=== PATIENT | female | born 1995 | race African-American/Black ===

== ENCOUNTER 2019-05-16 17:19 | Emergency (ER) | payer SELFPAY | END 2019-05-16 18:03 | disposition home or self-care (01) | LOC: ERS 17:19 | DX: J02.9 Acute pharyngitis, unspecified (principal); E11.9 Type 2 diabetes mellitus without complications; Z79.4 Long term (current) use of insulin | CPT/HCPCS: 99282 ==

== ENCOUNTER 2019-06-22 12:29 | Emergency (ER) | payer SELFPAY | END 2019-06-22 15:21 | disposition home or self-care (01) | LOC: ERS 12:29 | DX: J02.9 Acute pharyngitis, unspecified (principal); E11.9 Type 2 diabetes mellitus without complications; Z79.4 Long term (current) use of insulin | CPT/HCPCS: 99281 ==

== ENCOUNTER 2019-08-04 18:38 | Emergency (ER) | payer SELFPAY ==
[2019-08-04] MEDS ORDERED: Benzonatate 100 MG CAP ONE (20:52)
== END 2019-08-04 20:57 | disposition home or self-care (01) ==
LOC: ERS 18:38
DX: J06.9 Acute upper respiratory infection, unspecified (principal)
CPT/HCPCS: 87804; 99284

== ENCOUNTER 2019-08-28 09:14 | Emergency (ER) | payer SELFPAY ==
[2019-08-28 11:23] LABS: Bilirubin Negative (Negative); Blood, Urine Negative (Negative); Clarity Clear (Clear); Glucose, Urine (Dipstick) Normal (Negative); Leukocyte Negative Leu/uL (Negative); Nitrite Negative (Negative); Protein, Urine (Dipstick) 20 mg/dL (Neg-Trace); Urobilinogen Normal mg/dL (Less than 2)
[2019-08-28 12:17] LABS: Pregnancy Test - Urine (BHCG) Negative (Negative); Pregu Control Background? CLEAR/WHITE (CLR/WHITE); Pregu Control Bar Appear? YES (CONTROL BAR); Specific Gravity 1.033 (1.002-1.036)
== END 2019-08-28 12:46 | disposition home or self-care (01) ==
LOC: ERS 09:14
DX: R10.32 Left lower quadrant pain (principal)
CPT/HCPCS: 81003; 81025; 87480; 87491; 87510; 87591; 87660; 99284

== ENCOUNTER 2019-10-03 18:51 | Emergency (ER) | payer SELFPAY | END 2019-10-03 20:06 | disposition home or self-care (01) | LOC: ERS 18:51 | DX: G43.909 Migraine, unspecified, not intractable, without status migrainosus (principal); E10.9 Type 1 diabetes mellitus without complications | CPT/HCPCS: 99283 ==

== ENCOUNTER 2019-11-04 10:38 | Emergency (ER) | payer SELFPAY | END 2019-11-04 11:00 | disposition home or self-care (01) | LOC: ERS 10:38 | DX: S80.01XA Contusion of right knee, initial encounter (principal); E10.9 Type 1 diabetes mellitus without complications; X58.XXXA Exposure to other specified factors, initial encounter | CPT/HCPCS: 99283 ==

== ENCOUNTER 2020-04-23 22:50 | Emergency (ER) | payer SELFPAY | END 2020-04-23 23:36 | disposition home or self-care (01) | LOC: ERS 22:50 | DX: L73.1 Pseudofolliculitis barbae (principal); E10.9 Type 1 diabetes mellitus without complications | CPT/HCPCS: 99283 ==

== ENCOUNTER 2020-05-15 18:10 | Emergency (ER) | payer SELFPAY | END 2020-05-15 18:58 | disposition home or self-care (01) | LOC: ERS 18:10 | DX: S46.912A Strain of unspecified muscle, fascia and tendon at shoulder and upper arm level, left arm, initial encounter (principal); E10.9 Type 1 diabetes mellitus without complications; F32.9 Major depressive disorder, single episode, unspecified; X58.XXXA Exposure to other specified factors, initial encounter | CPT/HCPCS: 99283 ==

== ENCOUNTER 2020-06-27 03:35 | Emergency (ER) | payer SELFPAY ==
[2020-06-27 04:40] LABS: Bilirubin Negative (Negative); Clarity Turbid (Clear); Glucose, Urine (Dipstick) Normal (Negative); Ketone, Urine Trace mg/dL (Negative); Leukocyte 250 Leu/uL (Negative); Nitrite 1+ (Negative); Protein, Urine (Dipstick) 30 mg/dL (Neg-Trace); RBC/HPF 21-50 HPF (0-3); Specific Gravity, Urine 1.028 (1.002-1.036); Urobilinogen Normal mg/dL (Less than 2); WBC/HPF Greater than 50 HPF (0-3); Yeast-Budding Rare HPF (None Seen); pH, Urine 5.5 (5.0-9.0)
[2020-06-27 04:50] LABS: Bacteria/HPF 1+ HPF (None Seen)
[2020-06-27 04:51] LABS: Pregnancy Test - Urine (BHCG) POSITIVE (Negative); Pregu Control Background? CLEAR/WHITE (CLR/WHITE); Pregu Control Bar Appear? YES (CONTROL BAR); Specific Gravity 1.028 (1.002-1.036)
[2020-06-27 04:56] LABS: Blood, Urine Moderate (Negative)
== END 2020-06-27 05:14 | disposition home or self-care (01) ==
LOC: ERS 03:35
DX: O23.40 Unspecified infection of urinary tract in pregnancy, unspecified trimester (principal); O24.414 Gestational diabetes mellitus in pregnancy, insulin controlled
CPT/HCPCS: 81003; 81015; 81025; 87077; 87086; 87186; 99284

== ENCOUNTER 2020-07-03 18:26 | Emergency (ER) | payer SELFPAY ==
[2020-07-03 20:15] LABS: Hemoglobin 10.9 g/dL (12.0-16.0); Mean Corpuscular HGB CONC 33.3 g/dL (32.0-36.0); Mean Corpuscular Hemoglobin 22.1 pg (27.0-31.0); Mean Corpuscular Volume 66.4 fL (78.0-98.0); Mean Platelet Volume 10.2 fL (7.4-10.4); Platelet Count 216 thou/uL (130-400); RBC Distribution Width 13.9 % (11.5-14.5); Red Blood Cell (RBC) Count 4.93 mill/uL (4.20-5.40); White Blood Cell (WBC) Count 5.3 thou/uL (4.8-10.8)
[2020-07-03 20:31] LABS: Band 3 % (5-11); Eosinophils 4 % (0-10); Hypochromia SLIGHT = 6-15 cells (100X) (0-5/hpf); Lymphocytes 23 % (21-51); MDiff Complete? YES; Monocytes 10 % (0-10); Neutrophil 59 % (42-75); Platelet Morphology Comment Appears Adequate; Reactive Lymphocytes 1 % (0-10)
--- NOTE | 2020-07-03 21:17 | ULT ---
OBSTETRICAL ULTRASOUND: 07/03/20 HISTORY: and spotting. COMPARISON: None. TECHNIQUE: Choi scale, color Doppler with spectral Doppler images were obtained of the pelvis via transabdominal approach. FINDINGS: Uterus measures 13.3 x 7 x 7.9 cm. Right ovary measures 2.8 x 1.0 x 2.8 cm. left ovary measures 2.5 x 1.8 x 2.2 cm. There is a 1.5 cm cyst within the right ovary. There is an intrauterine gestation that contains a pole and yolk sac. Moyers-rump length measures 4.7 cm giving an estimated gestationa l age of 11 weeks, 3 days. Cardiac activity is noted at 157 beats per minute. Estimated due date base d on ultrasound biometrics is January 19, 2021. There is a small hypoechoic region along the inferior margin of the placenta suspicious for a small s ubchorionic hemorrhage measuring approximately 1.8 x 0.4 cm. Yolk sac measures approximately 8.3 mm. IMPRESSION: 1. Single live intrauterine gestation with size and dates as above. 2. Small subchorionic hemorrhage seen along the inferior margin of the gestational sac. Recommen d continued clinical and sonographic follow-up. 3. Right ovarian cyst measuring 1.5 cm. POS: BH
== END 2020-07-03 22:26 | disposition home or self-care (01) ==
LOC: ERS 18:26
DX: O20.8 Other hemorrhage in early pregnancy (principal); O24.911 Unspecified diabetes mellitus in pregnancy, first trimester; Z3A.11 11 weeks gestation of pregnancy; Z79.4 Long term (current) use of insulin
CPT/HCPCS: 36415; 76856; 84702; 85025; 86900; 86901; 90384; 96372

== ENCOUNTER 2020-07-30 18:36 | Emergency (ER) | payer MEDICAID, SELFPAY ==
[2020-07-30 19:51] LABS: Bilirubin Negative (Negative); Blood, Urine Negative (Negative); Clarity Turbid (Clear); Glucose, Urine (Dipstick) Normal (Negative); Ketone, Urine Negative (Negative); Leukocyte Negative Leu/uL (Negative); Nitrite Negative (Negative); Protein, Urine (Dipstick) 20 mg/dL (Neg-Trace); Specific Gravity, Urine 1.025 (1.002-1.036); Urobilinogen Normal mg/dL (Less than 2); pH, Urine 6.5 (5.0-9.0)
== END 2020-07-30 20:32 | disposition home or self-care (01) ==
LOC: ERS 18:36
DX: O99.891 Other specified diseases and conditions complicating pregnancy (principal); M54.5 Low back pain; O24.012 Pre-existing type 1 diabetes mellitus, in pregnancy, second trimester; E10.9 Type 1 diabetes mellitus without complications; Z3A.18 18 weeks gestation of pregnancy
CPT/HCPCS: 81003

== ENCOUNTER 2020-08-18 16:56 | Emergency (ER) | payer MEDICAID, SELFPAY ==
[2020-08-18 17:38] LABS: #Eosinphils 0.1 thou/uL (0.0-0.7); #Lymphocytes 1.4 thou/uL (1.20-3.40); #Monocytes 0.7 thou/uL (0.11-0.59); #Neutrophils 7.3 thou/uL (1.40-6.50); %Basophils 0.4 % (0.0-1.0); %Eosinophils 1.1 % (0.0-10.0); %Lymphocytes 14.4 % (21.0-51.0); %Monocytes 7.3 % (0.0-10.0); %Neutrophils 76.7 % (42.0-75.0); Hemoglobin 10.8 g/dL (12.0-16.0); Mean Corpuscular HGB CONC 32.9 g/dL (32.0-36.0); Mean Corpuscular Hemoglobin 21.9 pg (27.0-31.0); Mean Corpuscular Volume 66.4 fL (78.0-98.0); Mean Platelet Volume 10.7 fL (7.4-10.4); Platelet Count 215 thou/uL (130-400); RBC Distribution Width 14.3 % (11.5-14.5); Red Blood Cell (RBC) Count 4.95 mill/uL (4.20-5.40); White Blood Cell (WBC) Count 9.5 thou/uL (4.8-10.8)
[2020-08-18 17:59] LABS: ALT (SGPT) 16 U/L (8-55); AST (SGOT) 20 U/L (5-34); Albumin 3.5 g/dL (3.5-5.0); Alkaline Phosphatase 67 U/L (40-110); Anion Gap 12 mmol/L (10-20); BUN (Urea Nitrogen) 5 mg/dL (7.0-18.7); Bilirubin, Total 0.3 mg/dL (0.2-1.2); Calc. Creatinine Clearance 0 mL/min (70-130); Calcium 8.7 mg/dL (7.8-10.44); Carbon Dioxide 19 mmol/L (22-29); Chloride 106 mmol/L (98-107); Globulin 3.2 g/dL (2.4-3.5); Glucose 109 mg/dL (70-105); Potassium 3.7 mmol/L (3.5-5.1); Protein, Total 6.7 g/dL (6.0-8.3); Sodium 133 mmol/L (136-145)
[2020-08-18] MEDS ORDERED: metroNIDAZOLE 250 MG TAB ONE ×2 (18:20)
[2020-08-18 18:28] LABS: Bilirubin Negative (Negative); Blood, Urine Negative (Negative); Clarity Clear (Clear); Glucose, Urine (Dipstick) Normal (Negative); Ketone, Urine Trace mg/dL (Negative); Leukocyte Negative Leu/uL (Negative); Nitrite Negative (Negative); Protein, Urine (Dipstick) 20 mg/dL (Neg-Trace); Specific Gravity, Urine 1.026 (1.002-1.036); Urobilinogen Normal mg/dL (Less than 2)
[2020-08-19 21:37] LABS: Chlamydia by PCR Not Detected (NotDetected); GC by PCR Not Detected (NotDetected)
== END 2020-08-18 18:33 | disposition home or self-care (01) ==
LOC: ERS 16:56
DX: O23.592 Infection of other part of genital tract in pregnancy, second trimester (principal); B96.89 Other specified bacterial agents as the cause of diseases classified elsewhere; Z3A.21 21 weeks gestation of pregnancy
CPT/HCPCS: 36415; 80053; 81003; 84702; 85025; 87480; 87491; 87510; 87591; 87660; 99283

== ENCOUNTER 2020-09-11 23:03 | Emergency (ER) | payer MEDICAID ==
[2020-09-12 01:10] LABS: Bacteria/HPF None Seen HPF (None Seen); Bilirubin Negative (Negative); Blood, Urine Negative (Negative); Calcium Oxalate Crystals 1+ HPF (None Seen); Clarity Clear (Clear); Glucose, Urine (Dipstick) Normal (Negative); Ketone, Urine Negative (Negative); Leukocyte Negative Leu/uL (Negative); Nitrite 1+ (Negative); Protein, Urine (Dipstick) Negative (Neg-Trace); RBC/HPF 0-3 HPF (0-3); Specific Gravity, Urine 1.022 (1.002-1.036); Squamous Epithelial 0-3 HPF (0-3); Urobilinogen Normal mg/dL (Less than 2)
== END 2020-09-12 01:24 | disposition home or self-care (01) ==
LOC: ERS 23:03
DX: O23.42 Unspecified infection of urinary tract in pregnancy, second trimester (principal); Z3A.21 21 weeks gestation of pregnancy; O99.712 Diseases of the skin and subcutaneous tissue complicating pregnancy, second trimester; L02.214 Cutaneous abscess of groin; O24.012 Pre-existing type 1 diabetes mellitus, in pregnancy, second trimester; E10.9 Type 1 diabetes mellitus without complications
CPT/HCPCS: 36416; 81003; 81015; 87086

== ENCOUNTER 2021-01-03 22:51 | Emergency (ER) | payer OTHER ==
[2021-01-03 23:33] LABS: Bilirubin Negative (Negative); Blood, Urine Negative (Negative); Glucose, Urine (Dipstick) Negative (Negative); Ketone, Urine Trace mg/dL (Negative); Leukocyte Negative (Negative); Nitrite Negative (Negative); Protein, Urine (Dipstick) 30 mg/dL (Neg-Trace); Specific Gravity, Urine 1.025 (1.005-1.030); Urobilinogen 0.2 mg/dL (Less than 2)
[2021-01-03 23:50] LABS: Clarity Clear (Clear)
== END 2021-01-04 00:41 | disposition home or self-care (01) ==
LOC: ERS 22:51
DX: O99.891 Other specified diseases and conditions complicating pregnancy (principal); R39.15 Urgency of urination; R30.0 Dysuria; O24.013 Pre-existing type 1 diabetes mellitus, in pregnancy, third trimester; E10.9 Type 1 diabetes mellitus without complications; Z3A.38 38 weeks gestation of pregnancy
CPT/HCPCS: 81003; 81015; 87086; 99283

== ENCOUNTER 2021-02-04 22:24 | Emergency (ER) | payer OTHER ==
[2021-02-04] MEDS ORDERED: Lidocaine 2% PF 5 ML VIAL ONE (23:01)
[2021-02-04] MEDS ORDERED: Bacitracin 1 PK ONE (23:36)
== END 2021-02-04 23:40 | disposition home or self-care (01) ==
LOC: ERS 22:24
DX: S61.412A Laceration without foreign body of left hand, initial encounter (principal); E10.9 Type 1 diabetes mellitus without complications; W26.0XXA Contact with knife, initial encounter
CPT/HCPCS: 12001; J2001

== ENCOUNTER 2021-08-26 20:15 | Emergency (ER) | payer OTHER ==
[2021-08-26 21:02] LABS: Bilirubin Negative (Negative); Blood, Urine Negative (Negative); Clarity Turbid (Clear); Glucose, Urine (Dipstick) Normal (Negative); Ketone, Urine Negative (Negative); Leukocyte Negative Leu/uL (Negative); Nitrite Negative (Negative); Protein, Urine (Dipstick) Negative (Neg-Trace); Specific Gravity, Urine 1.024 (1.002-1.036); Urobilinogen Normal mg/dL (Less than 2); pH, Urine 6.5 (5.0-9.0)
[2021-08-27 17:39] LABS: Chlamydia by PCR Not Detected (NotDetected); GC by PCR Not Detected (NotDetected)
== END 2021-08-26 22:01 | disposition home or self-care (01) ==
LOC: ERS 20:15
DX: N76.0 Acute vaginitis (principal)
CPT/HCPCS: 81003; 87480; 87491; 87510; 87591; 87660; 99283

== ENCOUNTER 2022-10-07 16:45 | Emergency (ER) | payer OTHER | END 2022-10-07 17:28 | disposition home or self-care (01) | LOC: ERS 16:45 | DX: R05.9 Cough, unspecified (principal); E10.9 Type 1 diabetes mellitus without complications | CPT/HCPCS: 99283 ==

== ENCOUNTER 2022-10-18 07:50 | Emergency (ER) | payer OTHER ==
[2022-10-18 08:50] LABS: Pregnancy Test - Urine (BHCG) POSITIVE (Negative); Pregu Control Background? CLEAR/WHITE (CLR/WHITE); Pregu Control Bar Appear? YES (CONTROL BAR); Specific Gravity 1.019 (1.002-1.036)
== END 2022-10-18 09:26 | disposition home or self-care (01) ==
LOC: ERS 07:50
DX: O92.29 Other disorders of breast associated with pregnancy and the puerperium (principal); Z3A.00 Weeks of gestation of pregnancy not specified
CPT/HCPCS: 81025; 99284

== ENCOUNTER 2022-10-27 10:12 | Emergency (ER) | payer OTHER ==
[2022-10-27 10:59] LABS: #Eosinphils 0.1 thou/uL (0.0-0.7); #Lymphocytes 1.4 thou/uL (1.20-3.40); #Monocytes 0.6 thou/uL (0.11-0.59); #Neutrophils 4.8 thou/uL (1.40-6.50); %Basophils 0.2 % (0.0-1.0); %Eosinophils 1.4 % (0.0-10.0); %Lymphocytes 20.5 % (21.0-51.0); %Monocytes 8.6 % (0.0-10.0); %Neutrophils 69.3 % (42.0-75.0); Hemoglobin 11.5 g/dL (12.0-16.0); Mean Corpuscular HGB CONC 32.7 g/dL (32.0-36.0); Mean Corpuscular Hemoglobin 21.5 pg (27.0-31.0); Mean Corpuscular Volume 65.8 fl (78.0-98.0); Mean Platelet Volume 11.8 fL (7.4-10.4); Platelet Count 234 10x3/uL (130-400); RBC Distribution Width 14.9 % (11.5-14.5); Red Blood Cell (RBC) Count 5.34 mill/uL (4.20-5.40)
[2022-10-27 11:26] LABS: ALT (SGPT) Less than 7 U/L (8-55); AST (SGOT) 9 U/L (5-34); Albumin 3.8 g/dL (3.5-5.0); Alkaline Phosphatase 77 U/L (40-110); Anion Gap 12 mmol/L (10-20); BUN (Urea Nitrogen) 5 mg/dL (7.0-18.7); Bilirubin, Total 0.3 mg/dL (0.2-1.2); Calc. Creatinine Clearance 0 mL/min (70-130); Calcium 8.5 mg/dL (7.8-10.44); Carbon Dioxide 23 mmol/L (22-29); Chloride 105 mmol/L (98-107); Estimated GFR 119; Globulin 3.3 g/dL (2.4-3.5); Glucose 100 mg/dL (70-105); Potassium 3.9 mmol/L (3.5-5.1); Protein, Total 7.1 g/dL (6.0-8.3); Sodium 136 mmol/L (136-145)
[2022-10-27 12:03] LABS: Bacteria/HPF 4+ HPF (None Seen); Bilirubin Negative (Negative); Blood, Urine Negative (Negative); Clarity Turbid (Clear); Glucose, Urine (Dipstick) Normal (Negative); Ketone, Urine Negative (Negative); Leukocyte Negative Leu/uL (Negative); Nitrite 2+ (Negative); Protein, Urine (Dipstick) Negative (Neg-Trace); RBC/HPF 0-3 HPF (0-3); Urobilinogen Normal mg/dL (Less than 2); pH, Urine 6.5 (5.0-9.0)
== END 2022-10-27 14:10 | disposition home or self-care (01) ==
LOC: ERS 10:12
DX: O23.41 Unspecified infection of urinary tract in pregnancy, first trimester (principal); N39.0 Urinary tract infection, site not specified; Z3A.12 12 weeks gestation of pregnancy
CPT/HCPCS: 36415; 76801; 80053; 81003; 81015; 84702; 85025; 86900; 86901

== ENCOUNTER 2023-02-13 20:42 | Emergency (ER) | payer OTHER ==
[2023-02-13 21:45] LABS: Bacteria/HPF 2+ HPF (None Seen); Bilirubin Negative (Negative); Blood, Urine 3+ (Negative); CAUTI Indications for Culture Pelvic or flank pain; Clarity Extra Turbid (Clear); Glucose, Urine (Dipstick) Normal (Negative); Ketone, Urine Trace mg/dL (Negative); Leukocyte 500 Leu/uL (Negative); Mucous/LPF Rare LPF (<2+); Nitrite Negative (Negative); Protein, Urine (Dipstick) 200 mg/dL (Neg-Trace); RBC/HPF Greater than 50 HPF (0-3); Specific Gravity, Urine 1.032 (1.002-1.036); Urobilinogen Normal mg/dL (Less than 2); WBC/HPF Greater than 50 HPF (0-3); pH, Urine 5.5 (5.0-9.0)
[2023-02-13 21:47] LABS: Urine Culture Reflex Yes Yes
== END 2023-02-13 22:16 | disposition home or self-care (01) ==
LOC: ERS 20:42
DX: N39.0 Urinary tract infection, site not specified (principal)
CPT/HCPCS: 81001; 87077; 87086; 87186; 99283

== ENCOUNTER 2023-03-27 01:37 | Emergency (ER) | payer OTHER ==
[2023-03-27] MEDS ORDERED: HYDROcodone/Acetaminophen 5/325 mg Tablet ONE (02:53)
== END 2023-03-27 05:21 | disposition short-term general hospital (02) ==
LOC: ERS 01:37 → EEVIPCON 01:37 → ERS 05:21
DX: S00.83XA Contusion of other part of head, initial encounter (principal); I10 Essential (primary) hypertension; Y04.8XXA Assault by other bodily force, initial encounter
CPT/HCPCS: 70450; 70486